=== PATIENT | female | born 1995 | race Caucasian/White ===

== ENCOUNTER 2019-10-12 13:52 | Inpatient (IN) | payer SELFPAY ==
[2019-10-12 14:11] VITALS: BP 133/80; PULSE 122; RESP 16; TEMP 36.8; O2SAT 19; BMI 30.7
--- NOTE | 2019-10-12 14:32 | PC.NURSE ---
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
[2019-10-12 14:59] LABS: Basophils % 0.1 %; Eosinophils # 0.1 10^3/uL (0.0-0.8); Eosinophils % 0.8 %; Hematocrit 43.6 % (37.0-47.0); Hemoglobin 14.8 g/dL (11.5-15.3); Lymphocytes % 18.7 %; Mean Corpuscular HGB Conc 33.9 g/dL (30.0-36.0); Mean Corpuscular Volume 88.3 fL (81-99); Mean Platelet Volume 10.3 fL (7.4-10.4); Monocytes # 0.5 10^3/uL (0.2-0.9); Monocytes % 4.8 %; Neutrophils % 75.2 %; Nucleated Red Blood Cells % 0 %; Platelet Count 311 10^3/cmm (130-400); Red Blood Count 4.94 10^6/uL (4.1-5.3); Red Cell Distribution Width 12.3 % (12.1-15.1); White Blood Count 10.6 10^3/uL (4.0-10.0)
[2019-10-12 15:14] LABS: HCG, Serum Qual Negative (Negative)
--- NOTE | 2019-10-12 15:15 | W.ED.PSYCH ---
HPI - Psych General: Chief Complaint: Psychiatric Symptoms Stated Complaint: WANTS NPU Time Seen by Provider: 10/12/19 14:34 Source: patient Mode of arrival: ambulatory Limitations: no limitations History of Present Illness: HPI Narrative: Patient is a 24-year-old female who presents to ED today with complaints of worsening depression and suicidal ideations. Patient states she struggled with depression over the past 10 years and has sought counseling, therapy, medication treatment for this. She reports she has not been on medications over the past 3 years and was doing okay with this. She states over the past 2 weeks following the anniversary of the of her sister's suicide she has become increasingly depressed and reports that she has been consumed with thoughts of suicide. She reports she thinks about several plans stating that she would want to look like an accident so she does not hurt her family. Patient reports previous drug use. She states she had been clean from methamphetamine since 2016 but relapsed last month. She reports smoking marijuana and almost daily alcohol use. MD complaint: suicidal ideation and feels depressed Onset (ago): week(s) Duration: constant History of same: Yes Context: recent alcohol abuse, recent drug abuse and significant life stressor Associated symptoms: Reports depression and suicidal ideation; Deny auditory hallucinations, visual hallucinations or homicidal ideation If self harm: admits thoughts of self harm Review of Systems Const: Denies: fever or chills Card: Denies: chest pain, palpitations, lightheadedness or syncope Resp: Denies: shortness of breath GI: Denies: abdominal pain, nausea, vomiting or diarrhea Skin/Breast: Denies: rash Neuro: Denies: headache Psych: Reports: anxiety, depression and suicidal ideation; Denies: difficulty concentrating, visual hallucinations, auditory hallucinations, tactile hallucinations or homicidal ideation [facility] ED PFSH: Social History Smoking and tobacco status: never smoked Physical Exam Const: COMMON NORMALS: no apparent distress, oriented x3, alert and well nourished GENERAL APPEARANCE: cooperative and well kempt ORIENTATION/CONSCIOUSNESS: Yes oriented to person, Yes oriented to place and Yes oriented to time Resp: COMMON NORMALS: normal respiratory effort and clear to auscultation bilaterally AUSCULTATION: clear to auscultation bilaterally Cardio: COMMON NORMALS: regular rhythm RATE: tachycardic RHYTHM: regular rhythm Neuro: DANIELA COMA SCALE: document GCS findings [place] coma scale eye opening: Spontaneous Daniela coma scale verbal response: Orientated Daniela coma scale motor response: Obey commands [place] coma scale total score: 15 COMMON NORMALS: oriented x3 SENSORIUM/ORIENTATION: Yes alert, Yes oriented to person, Yes oriented to place and Yes oriented to time Psych: COMMON NORMALS: mental status grossly normal, thought process normal, cooperative, affect normal, speech normal and activity/motor behavior normal APPEARANCE: Yes well kempt ACTIVITY/MOTOR BEHAVIOR: Yes appropriate eye contact and No psychomotor agitation SPEECH: Yes normal speech THOUGHT PROCESS: normal thought process MEMORY/COGNITION: Yes memory grossly intact and Yes cognition grossly intact INSIGHT: insight good JUDGEMENT: judgment good MDM - Psych Lab Data: Labs: Lab Results 10/12/19 10/12/19 10/12/19 Range/Units 14:36 14:52 14:52 WBC 10.6 H (4.0-10.0) 10^3/ uL RBC 4.94 (4.1-5.3) 10^6/u L Hgb 14.8 (11.5-15.3) g/dL Hct 43.6 (37.0-47.0) % MCV 88.3 (81-99) fL MCH 30.0 (28.0-34.0) pg MCHC 33.9 (30.0-36.0) g/dL RDW 12.3 (12.1-15.1) % Plt Count 311 (130-400) 10^3/c mm MPV 10.3 (7.4-10.4) fL Neut % (Auto) 75.2 % Lymph % (Auto) 18.7 % [place] % (Auto) 4.8 % Eos % (Auto) 0.8 % Baso % (Auto) 0.1 % Neut # (Auto) 8.0 H (1.8-7.7) 10^3/u L Lymph # (Auto) 2.0 (0.8-4.8) 10^3/u L [place] # (Auto) 0.5 (0.2-0.9) 10^3/u L Eos # (Auto) 0.1 (0.0-0.8) 10^3/u L Baso # (Auto) 0.0 (0.0-0.1) 10^3/u L Nucleated RBC % (a uto) 0 % Nucleated RBCs # 0.0 /100WBC Sodium 139 (136-145) mmol/L Potassium 3.5 (3.5-5.1) mmol/L Chloride 106 (98-107) mmol/L Carbon Dioxide 19 L (22-29) mmol/L Anion Gap 17.5 (5-19) BUN 10 (6-20) mg/dL Creatinine 0.9 (0.5-0.9) mg/dL GFR Calculation 76.3 L (90-130) mL/min Glucose 109 (65-115) mg/dL Calcium 9.7 (8.5-10.5) mg/dL Total Bilirubin 1.0 (0.15-1.2) mg/dL AST 23 (0-32) U/L ALT 33 (0-33) U/L Alkaline Phosphata se 81 (35-105) IU/L Total Protein 7.2 (6.6-8.7) g/dL Albumin 4.2 (3.5-5.2) g/dL Globulin 3.0 (1.3-4.6) g/dL HCG, Qual (Negative) Salicylates < 0.3 L (3-10) mg/dL Urine Opiates Scre en Negative (Negative) ng/mL Acetaminophen < 5.0 L (10-30) ug/mL Ur Barbiturates Sc reen Negative (Negative) ng/mL Ur Phencyclidine S crn Negative (Negative) ng/mL Ur Amphetamines Sc reen Positive H (Negative) ng/mL U Benzodiazepines Scrn Positive H (Negative) ng/mL Urine Cocaine Scre en Negative (Negative) ng/mL U Marijuana (THC) Screen Positive H (Negative) ng/mL Ethyl Alcohol 11 H (0-10) mg/dL 10/12/19 Range/Units 14:52 WBC (4.0-10.0) 10^3/ uL RBC (4.1-5.3) 10^6/u L Hgb (11.5-15.3) g/dL Hct (37.0-47.0) % MCV (81-99) fL MCH (28.0-34.0) pg MCHC (30.0-36.0) g/dL RDW (12.1-15.1) % Plt Count (130-400) 10^3/c mm MPV (7.4-10.4) fL Neut % (Auto) % Lymph % (Auto) % [place] % (Auto) % Eos % (Auto) % Baso % (Auto) % Neut # (Auto) (1.8-7.7) 10^3/u L Lymph # (Auto) (0.8-4.8) 10^3/u L [place] # (Auto) (0.2-0.9) 10^3/u L Eos # (Auto) (0.0-0.8) 10^3/u L Baso # (Auto) (0.0-0.1) 10^3/u L Nucleated RBC % (a uto) % Nucleated RBCs # /100WBC Sodium (136-145) mmol/L Potassium (3.5-5.1) mmol/L Chloride (98-107) mmol/L Carbon Dioxide (22-29) mmol/L Anion Gap (5-19) BUN (6-20) mg/dL Creatinine (0.5-0.9) mg/dL GFR Calculation (90-130) mL/min Glucose (65-115) mg/dL Calcium (8.5-10.5) mg/dL Total Bilirubin (0.15-1.2) mg/dL AST (0-32) U/L ALT (0-33) U/L Alkaline Phosphata se (35-105) IU/L Total Protein (6.6-8.7) g/dL Albumin (3.5-5.2) g/dL Globulin (1.3-4.6) g/dL HCG, Qual Negative (Negative) Salicylates (3-10) mg/dL Urine Opiates Scre en (Negative) ng/mL Acetaminophen (10-30) ug/mL Ur Barbiturates Sc reen (Negative) ng/mL Ur Phencyclidine S crn (Negative) ng/mL Ur Amphetamines Sc reen (Negative) ng/mL U Benzodiazepines Scrn (Negative) ng/mL Urine Cocaine Scre en (Negative) ng/mL U Marijuana (THC) Screen (Negative) ng/mL Ethyl Alcohol (0-10) mg/dL EKG Data^: EKG 1: EKG interpretation date: 10/12/19 EKG interpretation time: 14:47 Interpretation: Sinus tachycardia Rate [address] elevation or depression noted Discharge Plan Discharge Patient Disposition: Xfer Psychiatric Hosp Clinical Impression: Suicidal ideation, Polysubstance abuse Condition: Stable Discharge Date/Time: 10/12/19 16:55 Coding Level of Care Code ED Eight Section Blower for Silvia Fwd Exam Detailed
[2019-10-12 15:19] LABS: Alanine Aminotransferase 33 U/L (0-33); Albumin Level 4.2 g/dL (3.5-5.2); Alcohol Level 11 mg/dL (0-10); Alkaline Phosphatase 81 IU/L (35-105); Anion Gap 17.5 (5-19); Aspartate Amino Transferase 23 U/L (0-32); Blood Urea Nitrogen 10 mg/dL (6-20); Calcium 9.7 mg/dL (8.5-10.5); Carbon Dioxide 19 mmol/L (22-29); Chloride 106 mmol/L (98-107); Glomerular Filtration Rate 76.3 mL/min (90-130); Glucose 109 mg/dL (65-115); Potassium 3.5 mmol/L (3.5-5.1); Sodium 139 mmol/L (136-145); Total Protein 7.2 g/dL (6.6-8.7)
[2019-10-12 15:30] LABS: Acetaminophen < 5.0 ug/mL (10-30); Salicylate < 0.3 mg/dL (3-10)
[2019-10-12 16:27] VITALS: BP 113/73; PULSE 75; RESP 14; O2SAT 99
[2019-10-12 16:40] LABS: Barbiturates Screen Urine Negative (Negative); Benzodiazepines Screen Urine Positive (Negative); Cocaine Screen Urine Negative (Negative); Opiate Screen Urine Negative (Negative); PCP Screen Urine Negative (Negative); THC Screen Urine Positive (Negative)
[2019-10-12 16:53] LABS: Amphetamines Screen Urine Positive (Negative)
[2019-10-12] MEDS: nicotine 21 mg Patch 1 PATCH TRANSDERMA (18:20)
[2019-10-12] MEDS: hyDROXYzine 25 mg Capsule 50 MG PO (18:20)
--- NOTE | 2019-10-12 18:21 | PC.NURSE ---
PRN VISTARIL 50 MG GIVEN PO PER PT C/O ANXIETY. WILL CONT TO MONITOR
[2019-10-12 18:46] VITALS: BP 111/79; PULSE 105; RESP 20; TEMP 37.1; O2SAT 99
[2019-10-12 20:11] VITALS: BP 97/65; PULSE 90; RESP 15; TEMP 36.6; O2SAT 96
[2019-10-13 06:00] VITALS: BP 126/81; PULSE 72; RESP 19; TEMP 36.3; O2SAT 97
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
[2019-10-13] MEDS: acetaminophen 325 mg Tablet 650 MG PO ×2 (10:29→17:34)
[2019-10-13] MEDS: folic acid 1 mg Tablet PO (10:32)
[2019-10-13] MEDS: multivitamin therapeutic Tablet 1 TAB PO (10:32)
[2019-10-13] MEDS: thiamine 100 mg Tablet PO (10:32)
[2019-10-13 13:28] VITALS: BP 117/80; PULSE 81; RESP 20; TEMP 36.4; O2SAT 98
[2019-10-13] MEDS: LORazepam 1 mg Tablet PO ×2 (14:15→20:09)
[2019-10-13 20:06] VITALS: BP 112/70; PULSE 93; RESP 18; TEMP 36.7; O2SAT 98
[2019-10-13] MEDS: mirtazapine 30 mg Tablet PO (20:09)
[2019-10-13] MEDS: nicotine 21 mg Patch 1 PATCH TRANSDERMA (21:08)
[2019-10-14 06:00] VITALS: BP 111/75; PULSE 76; RESP 19; O2SAT 98
[2019-10-14] MEDS: LORazepam 1 mg Tablet PO ×2 (08:48→15:32)
[2019-10-14] MEDS: multivitamin therapeutic Tablet 1 TAB PO (08:48)
[2019-10-14] MEDS: thiamine 100 mg Tablet PO (08:48)
[2019-10-14] MEDS: folic acid 1 mg Tablet PO (08:48)
[2019-10-14 14:00] VITALS: BP 119/80; PULSE 84; RESP 20; TEMP 36.3; O2SAT 97
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
[2019-10-14 16:09] VITALS: BP 111/75; PULSE 76; RESP 19; O2SAT 98
== END 2019-10-14 16:41 | disposition home or self-care (01) | DRG 885 ==
LOC: ER 15:37 → NP 16:36
PROVIDERS: Admitting Provider Psychiatry & Neurology Psychiatry; Emergency Provider Physician Assistant; Family Provider Family Medicine; PCP Family Medicine; Visit Provider Psychiatry & Neurology Psychiatry
DX: F33.1 Major depressive disorder, recurrent, moderate (principal); R45.851 Suicidal ideations; F10.229 Alcohol dependence with intoxication, unspecified; Z62.810 Personal history of physical and sexual abuse in childhood; F12.20 Cannabis dependence, uncomplicated; Y90.0 Blood alcohol level of less than 20 mg/100 ml; F41.9 Anxiety disorder, unspecified
CPT/HCPCS: 12345; 36415; 80053; 80307; 84703; 85025; 99284; A9270